=== PATIENT | male | born 1940 | race African-American/Black ===

== ENCOUNTER → 2017-05-13 | Outpatient (CLI) | payer MEDICAID, MEDICARE ==
--- NOTE | 2017-05-13 14:45 | Diagnostic Imaging Report ---
Indication: Back pain Technique: MRI examination of the Lumbar spine was performed in a 1.5 [place] magnet. Sequences obtained include sagittal and axial T1 and T2 fast spin echo, and sagittal STIR. No IV gadolinium was given Comparison: none Findings: T12-L1 is unremarkable. Conus medullaris tip is seen at about the T1-2 disc which is normal. L1-2: Mild narrowing of the disc noted. Concentric disc bulge and hypertrophied facets demonstrated. L2-3: Mild concentric disc bulge and mild to moderate facet hypertrophy demonstrated. Narrowing of the lateral recess and mild to moderate bilateral foraminal stenosis demonstrated. L2-4: Mild narrowing of the disc, concentric disc bulge, diffuse heterogeneous T2 hyperintensity within the disc indicative of disc measuring noted. Narrowing of the lateral recess and moderate bilateral foraminal stenosis demonstrated worse on the left compared to the right. Moderate hypertrophy facets demonstrated. L4-5: Severe narrowing of intervertebral discs with desiccation, wide based concentric disc protrusion, moderate endplate spur formation and moderate to severe arthropathy, consequently the canal has a trefoil appearance due to the lateral canal compression. AP diameter of the canal centrally is about 1.2 CM. L5-S1: Mild narrowing of the disc demonstrated. Asymmetric concentric disc bulge noted with the moderate to severe neural foraminal stenosis bilaterally. Narrowing of lateral recess also noted with moderate facet arthropathy present. Bone marrow signal is essentially normal. There is no evidence of acute injury. The spinal ligaments and paraspinous soft tissues are unremarkable. No abnormal fluid collections are identified. There is an incidental 1.2 CM cyst noted in the lower pole the right kidney. 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 Right renal cyst
== END | disposition home or self-care (01) ==
LOC: MRI 09:41
DX: M51.36 Other intervertebral disc degeneration, lumbar region (principal); N28.1 Cyst of kidney, acquired
CPT/HCPCS: 72148